=== PATIENT | female | born 1995 | race Caucasian/White ===

== ENCOUNTER 2017-11-21 16:29 | Emergency (ER) | payer BC, SELFPAY ==
[2017-11-21 17:49] LABS: Urine Blood NEGATIVE (NEG); Urine Glucose NEGATIVE (NEG); Urine Protein NEGATIVE (NEG); Urine pH 5.5 (5.0-7.0)
--- NOTE | 2017-11-21 17:51 | RAD REPORT ---
EXAM DESCRIPTION: RAD - Chest Single View - 11/21/2017 5:42 pm CLINICAL HISTORY: Cough, malaise, shortness of breath COMPARISON: None. TECHNIQUE: AP portable chest image was obtained 1737 hours . FINDINGS: Lungs are clear. Heart and vasculature are normal. No measurable pleural effusion and no p neumothorax. No gross bony abnormality seen. No acute aortic findings suspected. IMPRESSION: No acute cardiopulmonary process.
[2017-11-21 17:55] LABS: Absolute Monocytes 0.6 K/uL (0.1-1.3); Absolute Neutrophil 5.9 K/uL (1.8-8.0); Basophils % 0.2 % (0-1.3); Eosinophils % 0.8 % (0-4.4); Hematocrit 41.3 % (36.0-45.0); Lymphocytes % 23.6 % (15.3-44.8); MCH 30.7 pg (27.0-35.0); MCV 89.7 fL (80-100); MPV 8.6 fL (7.6-11.3); Monocytes % 6.6 % (3.3-12.3); RBC Red Blood Cell Count 4.61 M/uL (3.86-4.86)
[2017-11-21 17:59] LABS: Barbiturates NEGATIVE (NEGATIVE); Benzodiazepines NEGATIVE (NEGATIVE); Cocaine NEGATIVE (NEGATIVE); METHAMPHETAM NEGATIVE (NEGATIVE); Methadone NEGATIVE (NEGATIVE); Opiates NEGATIVE (NEGATIVE); Phencyclidine NEGATIVE (NEGATIVE); THC Cannibis NEGATIVE (NEGATIVE)
--- NOTE | 2017-11-21 18:02 | RAD REPORT ---
EXAM DESCRIPTION: CT - Head Brain Wo Cont - 11/21/2017 5:50 pm CLINICAL HISTORY: Acute onset dizziness, bilateral arm weakness, left arm tingling COMPARISON: None. TECHNIQUE: Axial 5 mm thick images of the head were obtained without IV contrast. All CT scans are performed using dose optimization technique as appropriate and may include automated exposure control or mA/KV adjustment according to patient size. FINDINGS: No intracranial hemorrhage, mass, edema or shift of mid-line structures. No acute infarcti on changes seen. No abnormal extra-axial fluid collections. Ventricles are normal. Mastoid air cells and visualized portions of the paranasal sinuses are clear. No acute bony findings. IMPRESSION: Negative non-contrast CT head examination.
[2017-11-21 18:11] LABS: BUN Blood Urea Nitrogen 9 mg/dL (7-18); Bicarbonate 27 mmol/L (21-32); Glucose Level 94 mg/dL (74-106); Potassium 3.8 mmol/L (3.5-5.1); Sodium Level 139 mmol/L (136-145)
--- NOTE | 2017-11-21 19:06 | EDPHYS ---
Physician Documentation [facility] Name: Jaelyn Pal Age: 21 yrs Sex: Female : 1995 Arrival Date: 11/21/2017 Time: 16:31 Bed 6 Private MD: ED Physician Mitch Maxwell HPI: 11/21 18:54 This 21 yrs old Female presents to ER via Ambulatory with complaints of gs Dizziness. 18:54 The patient presents with sense of spinning. Onset: The symptoms/episode began/occurred gs acutely, just prior to arrival. Context: occurred at school. Modifying factors: The symptoms are alleviated by nothing, the symptoms are aggravated by changing position. Associated signs and symptoms: Pertinent positives: tingling, chest heaviness. Severity of symptoms: At their worst the symptoms were severe in the emergency department the symptoms have improved. The patient has not experienced similar symptoms in the past. Historical: - Allergies: 16:33 No Known Allergies; hb - Home Meds: 16:33 None [Active]; hb - PMHx: 16:33 None; hb - PSHx: 16:33 None; hb - Immunization history:: Adult Immunizations up to date. - Social history:: Smoking status: Patient/guardian denies using tobacco. - Ebola Screening: : No symptoms or risks identified at this time. ROS: 18:54 All other systems are negative. gs Exam: 18:54 Head/Face: Normocephalic, atraumatic. Eyes: Pupils equal round and reactive to light, gs extra-ocular motions intact. Lids and lashes normal. Conjunctiva and sclera are non-icteric and not injected. Cornea within normal limits. Periorbital areas with no swelling, redness, or edema. ENT: Nares patent. No nasal discharge, no septal abnormalities noted. Tympanic membranes are normal and external auditory canals are clear. Oropharynx with no redness, swelling, or masses, exudates, or evidence of obstruction, uvula midline. Mucous membranes moist. Neck: Trachea midline, no thyromegaly or masses palpated, and no cervical lymphadenopathy. Supple, full range of motion without nuchal rigidity, or vertebral point tenderness. No Meningismus. Chest/axilla: Normal chest wall appearance and motion. Nontender with no deformity. No lesions are appreciated. Cardiovascular: Regular rate and rhythm with a normal S1 and S2. No gallops, murmurs, or rubs. Normal PMI, no JVD. No pulse deficits. Respiratory: Lungs have equal breath sounds bilaterally, clear to auscultation and percussion. No rales, rhonchi or wheezes noted. No increased work of breathing, no retractions or nasal flaring. Abdomen/GI: Soft, non-tender, with normal bowel sounds. No distension or tympany. No guarding or rebound. No evidence of tenderness throughout. Back: No spinal tenderness. No costovertebral tenderness. Full range of motion. Skin: Warm, dry with normal turgor. Normal color with no rashes, no lesions, and no evidence of cellulitis. MS/ Extremity: Pulses equal, no cyanosis. Neurovascular intact. Full, normal range of motion. 18:54 Constitutional: The patient appears alert, awake. 18:54 ECG was reviewed by the Attending Physician. 18:54 Neuro: Orientation: is normal, Mentation: is normal, Memory: is normal, Cranial nerves: CN II- XII are normal as tested, Cerebellar function: normal finger to nose testing, Motor: moves all fours, strength is 5/5 in all extremities, Sensation: numbness, is not appreciated, tingling, is not appreciated, pin prick testing is normal. Vital Signs: 16:32 BP 171 / 119; Pulse 133; Resp 16; Temp 99.3(TE); Pain 0/10; hb 16:42 BP 126 / 87; Pulse 89; Resp 19; Pulse Ox 100% on R/A; jb1 18:11 BP 120 / 74; Pulse 78; Resp 17; Pulse Ox 100% on R/A; tw2 19:18 BP 124 / 70; Pulse 76; Resp 18; Temp 98.2(O); Pulse Ox 99% on R/A; Pain 0/10; ea MDM: 17:17 Patient medically screened. 18:54 Differential diagnosis: cardiac arrhythmia, CVA, idiopathic dizziness, TIA, vertigo. Data reviewed: vital signs, nurses notes. Response to treatment: the patient's symptoms have resolved after treatment. 19:07 ED course: no pe risk no evidence dvt. 11/21 17:20 Order name: Basic Metabolic Panel; Complete Time: 18:48 11/21 17:20 Order name: CBC with Diff; Complete Time: 18:05 11/21 17:20 Order name: CT Head Brain wo Cont; Complete Time: 18:05 11/21 17:22 Order name: Urine Drug Screen; Complete Time: 18: 11/21 17:47 Order name: Urine Dipstick--Ancillary (enter results); Complete Time: 18:05 [facility] 11/21 17:47 Order name: Urine --Ancillary (enter results); Complete Time: 18:05 [facility] 11/21 17:20 Order name: XRAY Chest (1 view); Complete Time: 18:05 11/21 17:20 Order name: EKG; Complete Time: 17:20 11/21 17:20 Order name: Cardiac monitoring; Complete Time: 17:50 11/21 17:20 Order name: EKG - Nurse/Tech; Complete Time: 17:50 11/21 17:20 Order name: IV Saline Lock; Complete Time: 17:45 11/21 17:20 Order name: Labs collected and sent; Complete Time: 17:45 11/21 17:20 Order name: O2 Per Protocol; Complete Time: 17:50 11/21 17:20 Order name: O2 Sat Monitoring; Complete Time: 17:50 EC:54 Rate is 85 beats/min. Rhythm is regular. IA interval is normal. QRS interval is normal. QT interval is normal. T waves are Normal. No ST changes noted. Clinical impression: Normal ECG. Interpreted by me. Administered Medications: No medications were administered Disposition: 11/21/17 19:05 Discharged to Home. Impression: Dizziness and giddiness, Paresthesia of skin. - Condition is Stable. - Discharge Instructions: Dizziness, Paresthesia, [id number]. - Prescriptions for Valium 5 mg Oral Tablet - take 1 tablet by ORAL route every 12 hours As needed; 10 tablet. - Work release form, Medication Reconciliation Form, Thank You Letter, Antibiotic Education, Prescription Opioid Use form. - Follow up: Private Physician; When: 2 - 3 days; Reason: Re-evaluation by your physician. Signatures: Dispatcher [employer] EDMayela Denney RN RN hb Antunez, Elena, RN RN ea Starr, Gregory, MD MD gs Corrections: (The following items were deleted from the chart) 19:23 19:05 11/21/2017 19:05 Discharged to Home. Impression: Dizziness and giddiness; ea Paresthesia of skin. Condition is Stable. Forms are Work release form, Medication Reconciliation Form, Thank You Letter, Antibiotic Education, Prescription Opioid Use. Follow up: Private Physician; When: 2 - 3 days; Reason: Re-evaluation by your physician. gs
--- NOTE | 2017-11-21 19:06 | ER ---
Nurse's Notes [facility] Name: Jaelyn Pal Age: 21 yrs Sex: Female : 1995 Arrival Date: 11/21/2017 Time: 16:31 Bed 6 Private MD: Diagnosis: Dizziness and giddiness;Paresthesia of skin Presentation: 11/21 16:32 Presenting complaint: Sudden dizziness and nausea while sitting in class at 1130, then hb bilateral arm heaviness while laying down for nap at 1230. Now reports feeling lightheaded and left arm tingling. Transition of care: patient was not received from another setting of care. Onset of symptoms was November 21, 2017 at 12:30. Risk Assessment: Do you want to hurt yourself or someone else? Patient reports no desire to harm self or others. 16:32 Method Of Arrival: Ambulatory hb 16:32 Acuity: JENS 2 hb 19:00 Initial Sepsis Screen: Does the patient meet any 2 criteria? No. Patient's initial ea sepsis screen is negative. Does the patient have a suspected source of infection? No. Patient's initial sepsis screen is negative. Care prior to arrival: None. Historical: - Allergies: 16:33 No Known Allergies; hb - Home Meds: 16:33 None [Active]; hb - PMHx: 16:33 None; hb - PSHx: 16:33 None; hb - Immunization history:: Adult Immunizations up to date. - Social history:: Smoking status: Patient/guardian denies using tobacco. - Ebola Screening: : No symptoms or risks identified at this time. Screenin:20 Abuse screen: Denies threats or abuse. Nutritional screening: No deficits noted. aa5 Tuberculosis screening: No symptoms or risk factors identified. Fall Risk None identified. Assessment: 18:20 Reassessment: Patient and/or family updated on plan of care and expected duration. Pain aa5 level reassessed. Patient is alert, oriented x 3, equal unlabored respirations, skin warm/dry/pink. Patient states feeling better. Pt states "I still feel a little lightheaded and nauseous but I don't have the numbness and tingling to my arms". 18:20 General: Appears comfortable, Behavior is calm, cooperative. Pain: Denies pain. Neuro: aa5 Level of Consciousness is awake, alert, obeys commands, Oriented to person, place, time, situation, Cobol Developer are equal bilaterally Moves all extremities. Speech is normal, Facial symmetry appears normal, Pupils are PERRLA. Cardiovascular: Reports lightheadedness, Heart tones S1 S2 present Rhythm is regular. Respiratory: Airway is patent Respiratory effort is even, unlabored, Respiratory pattern is regular, symmetrical. GI: Reports nausea, Patient currently denies vomiting. : No signs and/or symptoms were reported regarding the genitourinary system. EENT: No signs and/or symptoms were reported regarding the EENT system. Derm: Skin is pink, warm \\T\\ dry. 18:20 Musculoskeletal: Range of motion: intact in all extremities. aa5 19:00 General: Appears in no apparent distress. Behavior is calm, cooperative. General: ea Report she is feeling a lot better. . Pain: Denies pain. Neuro: Level of Consciousness is awake, alert, obeys commands, Oriented to person, place, time, situation. Cardiovascular: Patient's skin is warm and dry. Respiratory: Airway is patent Respiratory effort is even, unlabored, Respiratory pattern is regular, symmetrical. Derm: Skin is pink, warm \\T\\ dry. Musculoskeletal: Range of motion: intact in all extremities. 19:18 Reassessment: Patient and/or family updated on plan of care and expected duration. Pain ea level reassessed. Patient is alert, oriented x 3, equal unlabored respirations, skin warm/dry/pink. Discharge instruction given to patient, verbalized the understanding of instruction. Patient states feeling better. Vital Signs: 16:32 BP 171 / 119; Pulse 133; Resp 16; Temp 99.3(TE); Pain 0/10; hb 16:42 BP 126 / 87; Pulse 89; Resp 19; Pulse Ox 100% on R/A; jb1 18:11 BP 120 / 74; Pulse 78; Resp 17; Pulse Ox 100% on R/A; tw2 19:18 BP 124 / 70; Pulse 76; Resp 18; Temp 98.2(O); Pulse Ox 99% on R/A; Pain 0/10; ea ED Course: 16:31 Patient arrived in ED. hb 16:33 Triage completed. hb 16:34 Arm band placed on right wrist. hb 16:42 Mitch Maxwell MD is Attending Physician. gs 16:47 Epps, Yeimi, RN is Primary Nurse. aa5 17:02 EKG done, by echocardiography technologist. reviewed by Mitch Maxwell MD. sm3 17:34 Inserted saline lock: 20 gauge in left antecubital area, using aseptic technique. Blood mw2 collected. 17:40 X-ray completed. Portable x-ray completed in exam room. Patient tolerated procedure ag1 well. Note: PT WAS SHIELDED. 17:41 XRAY Chest (1 view) In Process Unspecified. EDMS 17:45 Urine Drug Screen Sent. mw2 17:50 CT Head Brain wo Cont In Process Unspecified. EDMS 19:00 Report given to CHRIS Colon. aa5 19:00 Patient has correct armband on for positive identification. Bed in low position. Call ea light in reach. Adult w/ patient. 19:19 No provider procedures requiring assistance completed. IV discontinued, intact, ea bleeding controlled, No redness/swelling at site. Pressure dressing applied. Administered Medications: No medications were administered Outcome: 19:05 Discharge ordered by . shayy 19:21 Discharged to home ambulatory, with family. ea 19:21 Condition: improved 19:21 Discharge instructions given to patient, Instructed on discharge instructions, follow up and referral plans. medication usage, Demonstrated understanding of instructions, follow-up care, medications, Prescriptions given X 1. 19:23 Patient left the ED. ea Signatures: Dispatcher [employer] EDMS Louie Ferrell jb1 Yeimi Epps, RN RN aa5 Melani Lacy ag1 Mayela Hess RN RN Mary Reyes RN RN tw2 Darlene Lombardo RN RN ea Starr, Gregory, MD MD Trupti Cassidy mw2 Beth Fry 3
--- NOTE | 2017-11-22 09:46 | EKG ---
Test Date: 2017-11-21 Test Time: 16:56:15 Machine Chain Maker: ROCAEL MEASUREMENT RESULTS: Intervals: Rate: 85 FL: 110 QRSD: 84 QT: 350 QTc: 416 Hubbard: P: 18 FL: 110 QRS: 58 T: 15 INTERPRETIVE STATEMENTS: Sinus rhythm with short FL Otherwise normal ECG No previous ECG available for comparison Electronically Signed On 11-22-17 09:45:40 CDT by Peter Roman
== END 2017-11-21 19:23 | disposition home or self-care (01) ==
LOC: ER 16:29
DX: R20.2 Paresthesia of skin (principal)
CPT/HCPCS: 36415; 70450; 71045; 80048; 80307; 81003; 81025; 85025; 93005; 99284